=== PATIENT | female | born 1935 | race Caucasian/White ===

== ENCOUNTER → 2016-08-04 | Outpatient (CLI) | payer MEDICARE, BC ==
[2013-07-03 10:50] VITALS: BP 168/86
[~2016-08-04] MED LIST: ADVAIR DISKUS 21 DSK IH; AMBIEN10 MG PO; AMLODIPINE BESY10 MG PO; CARDURA4 MG PO; CELEBREX 200MG200 MG PO; COZAAR 25MG25 MG/TAB PO; GOOD NEIGHBOR325 MG PO; NORCO 325 MG-7.1 TAB PO; SYMBICORT1 AE3 IH; TRAMADOL 50 MG TAB PO; ULTRAM50 M1 PO
== END | disposition home or self-care (01) ==
LOC: PT 09:45

== ENCOUNTER 2016-08-18 12:04 | Inpatient (IN) | payer MEDICARE, BC ==
[~2016-08-18 12:04] MED LIST changes: -AMLODIPINE BESY10 MG PO; -CELEBREX 200MG200 MG PO; -GOOD NEIGHBOR325 MG PO; -NORCO 325 MG-7.1 TAB PO; -SYMBICORT1 AE3 IH; -TRAMADOL 50 MG TAB PO; -ULTRAM50 M1 PO
--- NOTE | 2016-08-18 12:45 | NUR ---
Pt admitted to room 203 at this time, ambulatory upon arrival with walker and SBA, when approaching room patient needed a break and used a wheelchair for the last 20 ft of her walk but stated she has been walking "a lot" [facility], she just was exhausted and hadnt had pain medicine for awhile, aslo reports that she "lost an entire day" at the surgical hospital due to narcotic pain medication she believes was [place], and requests to stick to Tylenol as much as possible for pain, patient has a generalized rash to back that the [facility] reported was from the tape and epidural that they had placed and removed during her stay, pt denies itching or need for Benadryl and believes it "will just go away soon," will continue to monitor, no other skin breakdown noted at pressure sites, left knee has an aquacell dressing on that is to be removed on 08/25/16 and replaced with 4x4 and secured with TAY hose, thigh high TAY hose on upon arrival, patient is fully alert and oriented, family is at bedside, pt is on Celebrex and Tylenol at this time to help with pain management and has PRN Ultram orders if needed, orders to ice that left knee for 20 minutes every hour, pt states she will do this "as much as possible," reports living at home prior to surgery with no assistance or outside resources, relies on family for support if needed, notable bruising redness and swelling to left knee from surgery, pt reports bruising and redness is "getting better" and denies that it has spread or worsened, states her pain is mainly only noticed with walking and transfers, complex assessment completed, VSS, oriented to new room, educated to call for help with transfers and about her bed and chair alarms used for her safety, upon leaving bed is in lowest locked position, call light is within reach, and patient denies further needs, will continue to monitor
[2016-08-18 12:51] VITALS: BP 103/49
[2016-08-18 18:15] VITALS: BP 120/65
[2016-08-18 19:15] VITALS: BP 120/65
[2016-08-18] MEDS ORDERED: SYMBICORT1 AE3 IH (19:25)
[2016-08-18] MEDS ORDERED: ULTRAM50 M1 PO (19:26)
[2016-08-18] MEDS ORDERED: GOOD NEIGHBOR325 MG PO (19:26)
[2016-08-18] MEDS ORDERED: AMLODIPINE BESY10 MG PO (19:26)
[2016-08-18] MEDS ORDERED: CELEBREX 200MG200 MG PO (19:27)
[2016-08-18] MEDS ORDERED: NORCO 325 MG-7.1 TAB PO (19:27)
--- NOTE | 2016-08-18 19:42 | NUR ---
Pt resting in bed comfortably, been icing her knee regularly as ordered, settling in well, c/o anxiety upon arriving but states she has calmed down and has been able to rest, requests PRN Tylenol with HS med pass, denies need for Ultram as she is also getting Ambien at bedtime, upon leaving patient is in bed reading a book, smiling affect, calm and cooperative with staff, and call light is within reach with bed alarms on
--- NOTE | 2016-08-18 21:20 | NUR ---
Shift assessment documented and completed at this time. Pt resting comfortably in bed watching TV. Denies SOA. Rates pain 4/10 to L knee. Denies need for medication. Dressing C/D/I. No further needs at this time. Bed locked, low, call light within reach, alarm armed.
[2016-08-19 06:23] VITALS: BP 115/70
--- NOTE | 2016-08-19 08:40 | NUR ---
PT UP WALKING TO SHOWER WITH SHANTANU CHRISTINE, SBA WITH WALKER, STATES SHE FEELS MUCH BETTER AND LESS ANXIOUS TODAY, DENIES NEED FOR TYLENOL AT THIS TIME BUT STATES SHE WILL TAKE IT AFTER THE SHOWER BECAUSE SHE DOESN'T WANT TO GET "BEHIND" ON PAIN CONTROL, LEFT KNEE INCISION COVERED WITH AQUACELL AT HIS TIME, ORDERS TO REMOVE 08/25/16, STATES PAIN IS 3/10 WHILE RESTING AND 5/10 WITH AMBULATION, REPORTS SHE HAD A DECENT NIGHT SLEEP, DENIES FURTHER NAUSEA OR DIARRHEA, STATES SHE FEELS SHE'S GETTING HER APPETITE BACK AND BREAKFAST TASTED GOOD, RASH ON BACK APPEARS TO BE IMPROVING, PT DENIES ITCHING OR CONCERNS AT THIS TIME, NO FURTHER ACUTE CHANGES UPON LEAVING ROOM, PT SHOWERING WITH EMMETT'S ASSISTANCE, WILL CONTINUE TO MONITOR PATIENT THROUGHOUT SHIFT
--- NOTE | 2016-08-19 12:58 | NUR ---
PT'S PAIN STILL UNDER CONTROL, TYLENOL PRN GIVEN X1 THIS AM, STATES SHE DOES NOT WANT ANYTHING STRONGER THAN TYLENOL BUT WILL TAKE MORE TYLENOL SOON, SMILING AFFECT, CALM AND COOPERATIVE WITH STAFF, FULLY ALERT AND ORIENTED, STATES SHE IS "LESS ANXIOUS" TODAY AND IS ENJOYING THIS FACILITY SO FAR, LEFT KNEE STILL HAS BRUISING AND REDNESS PRESENT, NO WARMTH AT SITE, BRUISING APPEARS TO BE IN HEALING STAGES, NO INCREASED REDNESS OR BRUISING FROM YESTERDAY'S ASSESSMENT
--- NOTE | 2016-08-19 14:39 | NUR ---
PRN TYLENOL ORDER CHANGED FROM EVERY 6 HOURS TO EVERY 4 HOURS DUE TO THIS BEING THE ONLY MEDICATION PATIENT WISHES TO TAKE FOR PAIN, DISCUSSED PAIN CONTROL AT THIS TIME, PT AGREES THAT WE NEED TO GIVE THIS TYLENOL ON A "REGULAR" BASIS RIGHT NOW WHILE WORKING WITH THERAPY SHE ADMITS HER PAIN IS STARTING TO GET "REALLY BAD" SOMETIMES THROUGHOUT THE DAY, WILL GIVE THIS PRN MEDICATION AGAIN WHEN AVAILABLE IN ORDER TO STAY AHEAD OF THE PAIN
--- NOTE | 2016-08-19 14:51 | NUR ---
PT UP WALKING WITH THERAPY, REPORTS HER PAIN IN HER LEG INCREASED, EDUCATED THAT SHE STILL HAS ULTRAM PRN AVAILABLE AND THAT THIS WOULD BE MORE BENEFICIAL FOR HER PAIN THAN TYLENOL, ALSO EDUCATED THAT THIS DOSE OF ULTRAM SHOULD NOT MAKE HER "DROWSY" AND THE 7.5 NORCOS (X2) SHE TOOK AT THE [facility], SHE DID NOT ENJOY "MISSING OUT ON AN ENTIRE DAY" DUE TO THIS DOSE AT THE [facility] AND STATES SHE DOES NOT WANT TO FEEL LIKE THAT AGAIN BUT DOES NEED SOMETHING STRONGER FOR PAIN, SHE HAS AGREED TO TRY A PRN DOSE OF ULTRAM WHEN SHE RETURNS TO ROOM FROM WALK, WE WILL ASSESS HOW SHE REACTS TO THIS MEDICATION AND ENSURE IT DOES NOT MAKE HER "TOO DROWSY"
--- NOTE | 2016-08-19 16:20 | NUR ---
Pt reports pain is "better" after ultram, smiling affect, resting in bed reading a book, denies that the ultram made her feel abnormal or too lethargic in any way, pleased with the results of the medication and states she would be willing to take this from now on when her pain intensifies
[2016-08-19 18:06] VITALS: BP 109/61
--- NOTE | 2016-08-19 19:15 | NUR ---
Report received from Yadi Henderson RN
--- NOTE | 2016-08-19 20:05 | NUR ---
Resting in recliner, a/o x 3. Visitor at pt's side. Pt denies need for pain medication or having any needs at this time. Rates pain at 3 out of 10. See shift accessment.
--- NOTE | 2016-08-19 20:05 | NUR ---
Bruise noted on left posterior hand, color red to purple. Pt denies pain.
--- NOTE | 2016-08-19 21:30 | NUR ---
Pt did own HS care with stand by assist. Able to bearfull weight, gait steady, one person stand by assist.
--- NOTE | 2016-08-19 22:05 | NUR ---
Pt stated a exceptable pain goal is 3 out of 10.
--- NOTE | 2016-08-19 22:16 | NUR ---
C/o's of pain, rates pain 4 out of 10. Pt given ultram 50mg PO, per pt request.
--- NOTE | 2016-08-19 23:19 | NUR ---
Resting in bed with eyes closed, even and none labored respirations.
--- NOTE | 2016-08-20 01:25 | NUR ---
Resting in bed, eyes closed, even, none labored respirations. Bed alarm turn on.
[2016-08-20 06:21] VITALS: BP 105/64
--- NOTE | 2016-08-20 07:00 | NUR ---
Report received from Saúl Morrison RN.
--- NOTE | 2016-08-20 07:25 | NUR ---
Q hourly checks done. Pt has been resting in bed, eyes closed even respirations. 704 Report given to Yadi Moses RN
--- NOTE | 2016-08-20 07:35 | NUR ---
Assessment completed. Pt sitting in chair. She reports her pain is at 2/10 while sitting and increases to a 3-4 with walking. Her last BM was two to three days ago which is normal for her, however she denies passing gas. Requests BRYANNA ortiz.
[2016-08-20 18:24] VITALS: BP 102/56
--- NOTE | 2016-08-20 18:55 | NUR ---
Report given to Saúl Morrison RN. Pt resting in bed.
--- NOTE | 2016-08-20 18:56 | NUR ---
Report received from Yadi Moses RN
--- NOTE | 2016-08-20 19:40 | NUR ---
Resting in recliner with legs elevated. A/o x 3. Has had Ice pack to left knee. Pt requested to remove ice pack. Ice pack has been on for 20 minutes. Review use of Ice pack. Instructed pt ice should be on 15-20 minutes at a time and then off for at least 20 minutes. May use 4-5/day and PRN. Pt agreed. Dressing to left knee, CDI. Bruising noted left lower leg. Color Purple. Doraslis pulse and tibial pulse present and strong. Capillary refill less than 3 seconds. Rates pain around 4-5 out of 10. Exceptable pain goal level is 3 out of 10. See shift accessment
--- NOTE | 2016-08-20 19:45 | NUR ---
Pulse equal and reactive to light. Mucus membranes mosit. Equal forestry adviser in hand and equal strength in feet.
--- NOTE | 2016-08-20 21:44 | NUR ---
C/o's of pain in left knee. Rates 4-5 out of 10. Pt given Ultram 50mg PO
--- NOTE | 2016-08-20 22:22 | NUR ---
Resting in bed, awake and a/o x 3. Pt reading from tablet. No c/o's of pain voiced
--- NOTE | 2016-08-21 02:17 | NUR ---
Resting in bed, eyes closed even none labored respirations. Pt has repositioned self. No facial grimacing noted
--- NOTE | 2016-08-21 06:00 | NUR ---
Q hourly checks done. Has been resting in bed with eyes closed, even, none labored respirations. Has repositioned self. At 0530 Pt awake and a/o x 3. Ambulated to bathroom with one person stand by assist, used walker. Denied having any needs or concerns.
[2016-08-21 06:31] VITALS: BP 127/69
--- NOTE | 2016-08-21 07:15 | NUR ---
Report given to Summer Wan RN
--- NOTE | 2016-08-21 07:50 | NUR ---
Report received from Kelly Morrison RN and care assumed. Pt resting in bed, states pain is 4/10 at this time and no request for pain medication. Pt states that she feels "cooped up" and pt educated that walks may be asked for whenever she feels like it to get some exercise or get out of the room. No further needs at this time. Call light in reach.
--- NOTE | 2016-08-21 09:20 | NUR ---
Pt states that she still has not had any results from the Senakot given yesterday. Offered pt an additional Senakot this morning to aid in having a BM. Pt accepted. Bowel sounds active and abdomen soft. Also educated pt on eating more fruit or other foods that can aid in having a BM. Pt verbalized understanding. Resting in chair, no further needs or concerns at this time.
--- NOTE | 2016-08-21 12:59 | NUR ---
Pt requested pain medication for knee pain. Ultram given per PRN orders at this time. No further needs or concerns. TAY baumann on. Pt resting in chair, call light in reach.
--- NOTE | 2016-08-21 14:00 | NUR ---
Pt ambulates in halls with stand by assist and walker, gait steady. No further needs at this time and no complaints of increasing pain. Back to chair, call light in reach.
[2016-08-21 17:39] VITALS: BP 131/66
--- NOTE | 2016-08-21 19:36 | NUR ---
Report given to Ange Abraham, MINING SUPPORT WORKER and care transfered. Pt resting in chair, no needs at this time.
--- NOTE | 2016-08-21 19:43 | NUR ---
Report received from Summer TURNER. Patient resting in recliner watching TV. A/O x4. Rates pain 3-4/10. to L knee. Denies need for analgesic at this time. Aquacell dresssing CDI. No shadowing. Feet elevated. Assessment completed. Denies wants or needs at this time.
--- NOTE | 2016-08-21 21:38 | NUR ---
Assisted to BR by ART GILDER and HS cares. To bed, Ambien given at this time per request. Bed alarm on. Call light in reach.
--- NOTE | 2016-08-21 23:58 | NUR ---
Rests quietly with eyes closed. No signs of pain or distress. Bed alarm on. Call light in reach.
--- NOTE | 2016-08-22 01:34 | NUR ---
Up to BR with assist. Denies need for analgesic. Assisted back to bed. Bed alarm on. Call light in reach.
--- NOTE | 2016-08-22 04:01 | NUR ---
Resting with eyes closed. No signs of pain or distress.
[2016-08-22 06:21] VITALS: BP 145/66
--- NOTE | 2016-08-22 07:12 | NUR ---
Rested well all night, up with assist x2. No further request for analgesic or verbalization of pain this shift. Report to Neda TURNER.
--- NOTE | 2016-08-22 08:30 | NUR ---
Pt reports that she slept well. Pain to L knee 09/23. Pt denies having BM since admit and is given PRN Senokot at this time. Aquacel to L knee intact, no drainage noted. Moderate bruising to surrounding tissue and down L leg. Pt is ambulating well and accepts tramadol x 1 in anticipation of therapy later this AM.
[2016-08-22 18:23] VITALS: BP 116/56
--- NOTE | 2016-08-22 19:05 | NUR ---
Report received from Angelique Casanova RN
--- NOTE | 2016-08-22 19:20 | NUR ---
Awake and a/o x 3. Sitting up in recliner, with feet elevated. Visitor at side. Pt denies pain or nausea. Denies having any needs or concern. Pt given fresh ice pack for left knee
--- NOTE | 2016-08-22 20:10 | NUR ---
Resting in recliner, awake and a/o x 3. Watching basket ball game on TV. Denied any needs or concerns. Chair alarm on, pt states understanding. Samuel baumann on. Dressing to left knee CDI. See shift accessment.
--- NOTE | 2016-08-22 22:33 | NUR ---
Pt continues to be a/o x 3. Ambulated to bathroom, one person stand by assist. Gait steady, uses walker when ambulating. Did own HS care. Given ultram 50mg PO per pt request. Rated pain 3-4 out 10.
--- NOTE | 2016-08-22 23:28 | NUR ---
Resting in bed, eyes closed even, none labored respirations. No facial grimacing noted.
--- NOTE | 2016-08-23 01:30 | NUR ---
Q hourly checks done. Eyes closed even, none labored respirations. Pt has repositioned self. Bed alarm on.
--- NOTE | 2016-08-23 04:30 | NUR ---
Awake and a/o x 3, used call light. Ambulated to the bathroom, stated she felt like she needed to have a bowel movement. Stated she was passing gas.
--- NOTE | 2016-08-23 04:35 | NUR ---
Pt urinated, stated she only passed gas. Given senokat 1 PO
[2016-08-23 06:20] VITALS: BP 141/74
--- NOTE | 2016-08-23 06:20 | NUR ---
Resting in bed with eyes closed, even none labored respirations. Pt has repositioned self. Q hourly checks done
--- NOTE | 2016-08-23 07:27 | NUR ---
Report given to Jackie Berrios RN
--- NOTE | 2016-08-23 08:30 | NUR ---
Cecilia Gomez PA-C at bedside.
--- NOTE | 2016-08-23 08:50 | NUR ---
Patient alert and oriented. Sitting up in chair with lower extremities elevated. Rates pain 3/10 to left knee. Describes pain as "dull." PRN tramadol administered per patient request. Aquacel dressing to left knee incision is clean, dry, and intact. No drainage noted. Moderate dark purple bruising noted to surrounding tissue and down left leg. CMS intact. TAY hose to bilateral lower extremities. Patient reports no BM since prior to admission. Cecilia Gomez PA-C notified. PRN senokot and miralax administered per orders. Bowels are audible x4. Abdomen is soft and nontender. Denies abdominal pain or discomfort. Patient ambulates to the bathroom and back to chair with stand by assist only. Stands at sink to brush teeth. Changes clothing without assistance. Steady gait noted with use of walker. Patient denies needs or questions at this time. Fall precautions in place.
--- NOTE | 2016-08-23 17:20 | NUR ---
Patient alert and oriented. Sitting in chair for evening meal. Rates pain 5/10 to left knee. PRN tramadol administered per patient request. Aquacel to left knee is clean, dry, and intact. No drainage. CMS intact. Patient reports no bowel movement since taking miralax and senokot this morning. Cecilia Gomez PA-C notified. New orders obtained. Additional dose of miralax and PRN senokot administered per orders. Bowel sounds are audible x4. Patient states "it feels like I need to go, I feel full." Denies abdominal pain or discomfort. Education provided. Patient verbalizes understanding and denies questions or needs. Fall precautions in place.
--- NOTE | 2016-08-23 17:26 | NUR ---
Pt anticipates discharge to home on 08-26-16. Her friend Justina Lyons will pick her up at discharge and take her to her appointment w/ Dr Elan Eisenberg. Justina will also check w/ [facility] for a shower chair and a bed side commode that she can place over her toilet for safety as she does not have grab bars beside her toilet, other [facility] pt's dtr Shea [phone] will obtain those items for her or her will put up bars when they arrive from [place] on the evening of pt's discharge. They plan to stay the weekend and if all goes well they will be leaving on Monday. Both pt and dtr are informed of HH services should pt decide that she is having difficulty and will not be able to get out for OP therapy. They are aware that HH can be ordered after her discharge if needed. Pt and dtr are notified of a personal alarm system and pt's dtr strongly encourages her mother to obtain one. Pt is given information and will review it and if she is in agreement we will set this up for her prior to her going home. Pt says she is comfortable w/ all discharge plans.
[2016-08-23 18:11] VITALS: BP 124/65
--- NOTE | 2016-08-23 19:28 | NUR ---
Report received from Jackie TURNER. Patient sitting up in recliner. A/O x4. Rates pain 4/10 to L knee. Luz CDI. Removes aureliano hose at this time. Legs elevated. Assessment completed. Denies wants or needs at this time. Call light in reach.
--- NOTE | 2016-08-23 20:45 | NUR ---
Scheduled HS medications and PRN ultram taken. Wants Ambien when goes to bed. Assisted to bathroom with SBA and walker. Had large soft formed BM. Assisted back to recliner with legs elevated. Call light in reach.
--- NOTE | 2016-08-24 01:03 | NUR ---
Resting with eyes closed. No signs of pain or distress. Bed alarm on. Call light in reach.
--- NOTE | 2016-08-24 04:16 | NUR ---
Continues sleeping. No signs of pain or distress. Call light in reach. Bed alarm on.
--- NOTE | 2016-08-24 06:17 | NUR ---
Rested well all night. No request for analgesic through the night, rests in bed with eyes closed. No signs of pain or distress. Bed alarm on. Call light in reach.
[2016-08-24 06:26] VITALS: BP 125/73
--- NOTE | 2016-08-24 07:10 | NUR ---
Report to Jackie TURNER
--- NOTE | 2016-08-24 12:35 | NUR ---
Patient alert and oriented. Sitting in recliner with lower extremities elevated. Rates pain 5/10 to left knee. States "it's a little worse." Offered patient PRN pain medication. Patient is hesitant at first. Education provided on pain control. Patient verbalizes understanding and is agreeable to PRN tramadol. Ice pack at bedside that patient applies for 15 minutes then removes independently. Aquacel dressing to left knee is clean, dry, and intact. TAY hose to bilateral lower extremities. CMS intact. Patient denies needs. Fall precautions in place.
[2016-08-24 17:58] VITALS: BP 111/63
--- NOTE | 2016-08-24 19:21 | NUR ---
Report received from Jackie TURNER. Patient sitting up in recliner. A/O x4. Rates pain 3/10 to L knee. Aquacell dressing CDI. Has been utilizing ice. Legs elevated. Assessment completed. Denies wants or needs at this time.
--- NOTE | 2016-08-25 00:12 | NUR ---
Rests with eyes closed. No signs of pain or distress. Took PRN Ultram with HS medications and Ambien later when went to bed. Bed alarm on. Call light in reach.
--- NOTE | 2016-08-25 04:11 | NUR ---
Up to BR with SBA, gait belt and walker. Voids 800 ML of clear yellow urine. Assisted back to bed. TAY hose removed per request. Denies pain or need for analgesic. Bed alarm on. Call light in reach.
[2016-08-25 06:36] VITALS: BP 135/77
--- NOTE | 2016-08-25 07:10 | NUR ---
Report to Chuyita TURNER.
--- NOTE | 2016-08-25 08:10 | NUR ---
PT UP IN CHAIR EATING BREAKFAST, REQUESTS PRN PAIN PILL WITH AM MEDS TO HELP HER GET THROUGH THERAPY, COMPLEX ASSESSMENT COMPLETED, STABLE CONDITION, AMBULATORY WITH SBA, MENTIONS MULTIPLE TIMES HOW PLEASED SHE HAS BEEN WITH HER CARE AND THE STAFF AT [facility], SMILING AFFECT, DENIES ACUTE CHANGE OR NEEDS, WILL REMOVE AQUACELL LATER TODAY ORDERED, CALL LIGHT WITHIN REACH UPON LEAVING ROOM
--- NOTE | 2016-08-25 13:01 | NUR ---
PT'S AQUACELL TO LEFT KNEE DC'D AT THIS TIME ORDERED, MINOR PAIN WITH REMOVIAL, SITE LOOKS WELL, EDGES WELL APPROXIMATED, NO SIGNS OF INFECTION OR DRAINAGE, SURROUNDING SKIN STILL BRUISED WITH AREAS OF REDNESS, PAIN NOTED AT SITE AND PRN ULTRAM ADMINISTERED AT THIS TIME, SITE CLEANSED AND COVERED WITH GAUZE SECURED BY TAY HOSE ORDERED AT THIS TIME
[2016-08-25 18:10] VITALS: BP 116/63
--- NOTE | 2016-08-25 19:05 | NUR ---
Report received from Chuyita Angel RN
--- NOTE | 2016-08-25 19:15 | NUR ---
Resting in recliner a/o x 3. Denies need for pain medication at this time. Request ice pack for left knee. See shift assessment.
--- NOTE | 2016-08-25 19:20 | NUR ---
Gauze dressing to left knee. CDI, held in place by TAY baumann. Incision Well aprox. no drainage.
--- NOTE | 2016-08-25 22:05 | NUR ---
At 2204 Pt c/o of left knee pain. Rated pain 5 out of 10. Given Ultram 50mg PO.
--- NOTE | 2016-08-25 22:30 | NUR ---
Pt c/o of TAY hose itching. TAY hose removed. Incision CDI. No drainage. Gauze dressing wrapped with gauze wrap. While TAY hose are off. Instructed pt TAY hose would be reapplied in one hour. Pt agreed.
--- NOTE | 2016-08-25 23:30 | NUR ---
Bed alarm sounded, pt found sitting up in bed. Stated she need to go to the bathroom and didn't realize bed would alarm. Pt reminded that bed alarms are on all pt's. Reminder her she need to use call light and ask for assistances when getting out of bed. Pt agree. Pt denied pain. Gauze wrap removed. Gauze dressing in place. TAY hose re-applied.
--- NOTE | 2016-08-26 03:37 | NUR ---
Q hourly checks done, resting in bed with eyes closed. Even, none labored respiration. Pt has repositioned self. Bed alarm on.
--- NOTE | 2016-08-26 06:11 | NUR ---
At 0515 pt awake and a/o x 3. Denied pain. Ambulated to bathroom with one stand by assist, used walker and gait steady. Denied having any needs or concerns.
[2016-08-26 06:19] VITALS: BP 132/76
--- NOTE | 2016-08-26 07:05 | NUR ---
REPORT RECEIVED FROM TOSIN TURNER.
--- NOTE | 2016-08-26 07:09 | NUR ---
Report given to Sydnie Purcell RN
--- NOTE | 2016-08-26 07:34 | NUR ---
AWAKE. SITTING IN CHAIR WITH LE ELEVATED. TAY HOSE TO BILAT LE. SIOBHAN FRANCIS ALSO AT BEDSIDE TO DISCUSS TODAY'S PLAN. PATIENT TO DISCHARGE TODAY AT 1100. HER FRIEND ETELVINA WILL BE PICKING HER UP AND TRANSPORTING HER TO [facility] F/U APPT. THEN SHE WILL GO HOME. SHE REPORTS LT KNEE PAIN 3/10. PAIN MEDICATION TO BE GIVEN WITH BREAKFAST. SURGICAL INCISION TO LT KNEE APPEARS WITH SKIN EDGES TOUCHING. THERE IS SOME ECCHYMOSIS AROUND KNEE JOINT. GAUZE 4X4 COVERS SITE TO PROVIDE PROTECTION FROM TAY HOSE. CALL LIGHT IN REACH.
[2016-08-26] MEDS ORDERED: CELEBREX 200MG200 MG PO (08:56)
[2016-08-26] MEDS ORDERED: TRAMADOL 50 MG TAB PO (08:57)
--- NOTE | 2016-08-26 09:56 | NUR ---
DISCHARGE INSTRUCTIONS REVIEWED WITH PATIENT. ENCOURAGE DAILY VISUALIZATION OF SURGICAL INCISION. EDUCATION PROVIDED REGARDING S/S OF INFECTION. PATIENT VERBALIZES UNDERSTANDING. REVIEW RX PROVIDED FOR PAIN MEDICATION AND WHAT DOSE HAS BEEN GIVEN DURING THIS HOSPITAL STAY.
--- NOTE | 2016-08-26 11:14 | NUR ---
PATIENT DISCHARGES FACILITY AT THIS TIME VIA W/C.
== END 2016-08-26 11:14 | disposition home or self-care (01) | DRG 561 ==
LOC: MED/SURG 12:04
PROVIDERS: ADMIT Physician Assistant
DX: Z47.1 Aftercare following joint replacement surgery (principal); Z96.652 Presence of left artificial knee joint; J47.9 Bronchiectasis, uncomplicated; F41.9 Anxiety disorder, unspecified; K59.00 Constipation, unspecified; R53.81 Other malaise; I10 Essential (primary) hypertension; M81.0 Age-related osteoporosis without current pathological fracture; J30.9 Allergic rhinitis, unspecified; Z79.82 Long term (current) use of aspirin; Z23 Encounter for immunization; Z87.440 Personal history of urinary (tract) infections; Z87.891 Personal history of nicotine dependence

== ENCOUNTER 2016-08-29 11:17 | Outpatient (RCR) | payer MEDICARE, BC ==
[~2016-08-29 11:17] MED LIST changes: +AMLODIPINE BESY10 MG PO; +CELEBREX 200MG200 MG PO; +GOOD NEIGHBOR325 MG PO; +NORCO 325 MG-7.1 TAB PO; +SYMBICORT1 AE3 IH; +TRAMADOL 50 MG TAB PO; +ULTRAM50 M1 PO
== END 2016-11-11 15:01 | disposition home or self-care (01) ==
LOC: PT 11:17
DX: Z47.89 Encounter for other orthopedic aftercare (principal)

== ENCOUNTER → 2017-05-03 | Outpatient (CLI) | payer MEDICARE, BC | LOC: MAMMO 10:49 | DX: Z12.31 Encounter for screening mammogram for malignant neoplasm of breast (principal) | CPT/HCPCS: G0202 ==

== ENCOUNTER 2018-02-11 12:22 | Emergency (ER) | payer MEDICARE, BC ==
[~2018-02-11] VITALS: Ht 157.5 cm; Wt 55.8 kg
[2018-02-11] MEDS ORDERED: GOOD NEIGHBOR200 M1 PO (12:33)
[2018-02-11 13:30] VITALS: BP 147/84
[2018-02-11] MEDS ORDERED: BACITRACIN TOP O1 TU TOP (13:30)
== END 2018-02-11 13:30 | disposition home or self-care (01) ==
LOC: ED 12:22
DX: S51.812A Laceration without foreign body of left forearm, initial encounter (principal); W19.XXXA Unspecified fall, initial encounter; Y92.009 Unspecified place in unspecified non-institutional (private) residence as the place of occurrence of the external cause; Z23 Encounter for immunization
CPT/HCPCS: 90715

== ENCOUNTER → 2020-04-30 | Outpatient (CLI) | payer MEDICARE, BC ==
[~2020-04-30] MED LIST changes: +BACITRACIN TOP O1 TU TOP; +GOOD NEIGHBOR200 M1 PO
== END ==
LOC: RAD 08:45 → MAMMO 09:15
DX: M81.0 Age-related osteoporosis without current pathological fracture (principal)

== ENCOUNTER → 2020-04-30 | Outpatient (CLI) | payer MEDICARE, BC | LOC: MAMMO 08:30 | DX: Z12.31 Encounter for screening mammogram for malignant neoplasm of breast (principal); Z80.3 Family history of malignant neoplasm of breast ==

== ENCOUNTER → 2023-07-13 | Outpatient (CLI) | payer MEDICARE, BC | LOC: MAMMO 09:58 | DX: Z12.31 Encounter for screening mammogram for malignant neoplasm of breast (principal) ==

== ENCOUNTER → 2023-07-13 | Outpatient (CLI) | payer MEDICARE, BC | LOC: RAD 10:02 | DX: M81.0 Age-related osteoporosis without current pathological fracture (principal) ==

== ENCOUNTER 2023-09-29 10:29 | Emergency (ER) | payer MEDICARE, BC ==
[~2023-09-29] VITALS: Ht 157.5 cm; Wt 45.2 kg
[2023-09-29] MEDS ORDERED: ALBUTEROL2.5 MG/3 M IH (10:41)
[2023-09-29] MEDS ORDERED: ALENDRONATE SOD70 MG PO (10:42)
[2023-09-29 11:14] LABS: BASO # 0.06 K/mm3 (0.02-0.10); EOS # 0.25 K/mm3 (0.04-0.40); EOS % 3.5 % (1.0-5.0); HEMATOCRIT 40.4 % (37.0-47.0); HEMOGLOBIN 12.8 g/dL (12.5-16.0); LYMPH# 1.06 K/mm3 (1.50-4.00); MEAN CELL VOLUME 89 fl (78-100); MEAN CORPUSCULAR HEMOGLOBIN 28 pg (27-31); MEAN CORPUSCULAR HGB CONC 32 g/dL (33-37); MEAN PLATELET VOLUME 9.4 fl (7.4-10.4); NEU # 4.77 K/mm3 (1.40-6.50); PLATELET COUNT 323 K/mm3 (130-400); RED BLOOD COUNT 4.56 M/mm3 (4.10-5.30); RED CELL DISTRIBUTION WIDTH 13.6 % (11.5-14.5); WHITE BLOOD COUNT 7.1 K/mm3 (4.8-10.8)
[2023-09-29 11:20] LABS: ALBUMIN 3.6 g/dL (3.4-4.8)
[2023-09-29 11:21] LABS: CALCIUM 9.7 mg/dL (8.3-10.5)
[2023-09-29 11:22] LABS: TOTAL PROTEIN 7.1 g/dL (6.2-8.1)
[2023-09-29 11:24] LABS: TOTAL BILIRUBIN 0.4 mg/dL (0.2-1.2)
[2023-09-29] MEDS ORDERED: methylPREDNISolone Sod Succ 125 MG/2 ML VIAL IV ONE (11:30)
[2023-09-29] MEDS ORDERED: Albuterol/Ipratropium 3 MG-0.5 MG/3 ML Neb Soln IH ONE (11:30)
[2023-09-29] MEDS ORDERED: Acetaminophen 325 MG TAB PO PRN (13:00)
[2023-09-29] MEDS ORDERED: Polyethylene Glycol 3350 Powder 17 GM PACKET PO PRN (13:00)
[2023-09-29] MEDS ORDERED: dexAMETHasone 4 MG TAB PO ONE (13:15)
[2023-09-29] MEDS ORDERED: Alendronate 70 MG TAB PO SCH (13:15)
[2023-09-29] MEDS ORDERED: Albuterol 0.083% Nebule (2.5 MG/3 ML) IH PRN (13:15)
[2023-09-29 13:31] VITALS: BP 153/89
[2023-09-29] MEDS ORDERED: Zolpidem 5 MG TAB PO SCH (21:00)
[2023-09-30] MEDS ORDERED: Budesonide Neb Soln 0.5 MG/2 ML AMP IH SCH (09:00)
[2023-10-03] MEDS ORDERED: DOXYCYCLINE MO100 M3 PO (16:19)
[2023-10-03] MEDS ORDERED: AMBIEN5 M1 PO (16:20)
[2023-10-03] MEDS ORDERED: PREDNISONE10 MG PO (16:21)
[2023-10-03] MEDS ORDERED: VIBRAMYCIN HYC100 MG PO (16:22)
== END 2023-09-29 13:30 | disposition other institution (70) ==
LOC: ED 10:29
PROVIDERS: Nurse Practitioner Family
DX: U07.1 COVID-19 (principal); R05.9 Cough, unspecified; R06.02 Shortness of breath; R06.00 Dyspnea, unspecified; R09.02 Hypoxemia; J42 Unspecified chronic bronchitis
CPT/HCPCS: J2930

== ENCOUNTER → 2023-10-18 | Outpatient (CLI) | payer MEDICARE, BC ==
[~2023-10-18] MED LIST changes: +ALBUTEROL2.5 MG/3 M IH; +ALENDRONATE SOD70 MG PO; +AMBIEN5 M1 PO; +DOXYCYCLINE MO100 M3 PO; +PREDNISONE10 MG PO; +VIBRAMYCIN HYC100 MG PO
== END ==
LOC: LAB 13:28
DX: J47.9 Bronchiectasis, uncomplicated (principal)

== ENCOUNTER 2024-02-29 14:49 | Emergency (ER) | payer MEDICARE, BC ==
[~2024-02-29] VITALS: Ht 157.5 cm; Wt 48.3 kg
[2024-02-29] MEDS ORDERED: AMBIEN5 M1 PO (14:57)
[2024-02-29] MEDS ORDERED: PRAVASTATIN SOD10 MG PO (14:57)
[2024-02-29] MEDS ORDERED: FLUTICASONE-SA1 EAC4 (14:58)
[2024-02-29] MEDS ORDERED: DONEPEZIL HCL10 MG PO (14:59)
[2024-02-29 15:22] LABS: BASO # 0.04 K/mm3 (0.02-0.10); EOS # 0.03 K/mm3 (0.04-0.40); EOS % 0.2 % (1.0-5.0); HEMATOCRIT 37.9 % (37.0-47.0); HEMOGLOBIN 12.4 g/dL (12.5-16.0); LYMPH# 0.99 K/mm3 (1.50-4.00); MEAN CELL VOLUME 87 fl (78-100); MEAN CORPUSCULAR HEMOGLOBIN 29 pg (27-31); MEAN CORPUSCULAR HGB CONC 33 g/dL (33-37); MEAN PLATELET VOLUME 9.5 fl (7.4-10.4); MONO # 1.33 K/mm3 (0.20-0.80); PLATELET COUNT 265 K/mm3 (130-400); RED BLOOD COUNT 4.35 M/mm3 (4.10-5.30); RED CELL DISTRIBUTION WIDTH 13.7 % (11.5-14.5); WHITE BLOOD COUNT 19.4 K/mm3 (4.8-10.8)
[2024-02-29 15:28] LABS: ALBUMIN 3.7 g/dL (3.4-4.8)
[2024-02-29 15:29] LABS: CALCIUM 9.9 mg/dL (8.3-10.5)
[2024-02-29 15:32] LABS: TOTAL BILIRUBIN 0.6 mg/dL (0.2-1.2)
[2024-02-29 16:26] LABS: D-DIMER 0.83 mg/L FEU (0.15-0.50)
[2024-02-29] MEDS ORDERED: cefTRIAXone 1 G in Water For Injection,Sterile 10 ML IV ONE (16:30)
[2024-02-29] MEDS ORDERED: NS 1,000 ML IV SCH (16:30)
[2024-02-29] MEDS ORDERED: Iohexol 350 - 100 ML VIAL IV ONE (16:33)
[2024-02-29 16:39] LABS: RSV RAPID MOLECULAR IN HOUSE NEGATIVE (NEGATIVE)
== END 2024-02-29 18:09 | disposition other institution (70) ==
LOC: ED 14:49
PROVIDERS: Nurse Practitioner
DX: J18.9 Pneumonia, unspecified organism (principal); J42 Unspecified chronic bronchitis; J84.9 Interstitial pulmonary disease, unspecified; I10 Essential (primary) hypertension; R09.02 Hypoxemia
CPT/HCPCS: J0696; J7030; Q9967

== ENCOUNTER 2024-02-29 17:45 | Inpatient (IN) | payer MEDICARE, BC ==
[~2024-02-29] VITALS: Ht 157.5 cm; Wt 48.0 kg
[~2024-02-29 17:45] MED LIST changes: +DONEPEZIL HCL10 MG PO; +FLUTICASONE-SA1 EAC4; +PRAVASTATIN SOD10 MG PO
[2024-02-29 18:00] VITALS: BP 162/65
--- NOTE | 2024-02-29 18:00 | NUR ---
PT ADMITTED FROM ED. ORIENTATED TO HOSPITAL. ADMISSION PROCESS COMPLETE. 1L O2 VIA NC, FLUIDS RUNNING. PT IN CHAIR EATING DINNER. NO QUESTIONS OR CONCERNS AT THIS TIME. CHAIR ALARM ON, CALL LIGHT WITHIN REACH.
[2024-02-29] MEDS ORDERED: Acetaminophen 325 MG TAB PO PRN (18:15)
[2024-02-29] MEDS ORDERED: Polyethylene Glycol 3350 Powder 17 GM PACKET PO PRN (18:15)
[2024-02-29] MEDS ORDERED: Zolpidem 5 MG TAB PO PRN (18:30)
[2024-02-29] MEDS ORDERED: Azithromycin 250 MG TAB PO ONE (18:30)
[2024-02-29] MEDS ORDERED: Albuterol 0.083% Nebule (2.5 MG/3 ML) IH PRN (18:30)
[2024-02-29] MEDS ORDERED: Donepezil 5 MG TAB PO SCH (21:00)
[2024-02-29] MEDS ORDERED: Formoterol 20 MCG,Budesonide 0.5 MG IH SCH (21:00)
[2024-02-29] MEDS ORDERED: Pravastatin 20 MG TAB PO SCH (21:00)
[2024-02-29 22:17] VITALS: BP 145/79
[2024-03-01 02:05] VITALS: BP 124/74
--- NOTE | 2024-03-01 05:38 | NUR ---
pt woke up and was taken to bathroom by timber skidder, after pt was returned to bed she started coughing, this rn spot checked pts spo2% at 93% on 1l o2. pt continued coughing and stated she felt a bit short of air, this rn proceeded to start prn albuterol ih tx. pt will be assesed after breathing tx, for further needs.
[2024-03-01 06:01] VITALS: BP 137/81
[2024-03-01 06:28] LABS: BASO # 0.07 K/mm3 (0.02-0.10); EOS % 0.6 % (1.0-5.0); HEMATOCRIT 34.1 % (37.0-47.0); HEMOGLOBIN 11.1 g/dL (12.5-16.0); MEAN CELL VOLUME 88 fl (78-100); MEAN CORPUSCULAR HEMOGLOBIN 29 pg (27-31); MEAN CORPUSCULAR HGB CONC 33 g/dL (33-37); MEAN PLATELET VOLUME 9.6 fl (7.4-10.4); NEU # 12.84 K/mm3 (1.40-6.50); PLATELET COUNT 245 K/mm3 (130-400); RED BLOOD COUNT 3.87 M/mm3 (4.10-5.30); RED CELL DISTRIBUTION WIDTH 14.1 % (11.5-14.5); WHITE BLOOD COUNT 16.7 K/mm3 (4.8-10.8)
[2024-03-01 06:38] LABS: CALCIUM 8.8 mg/dL (8.3-10.5)
[2024-03-01] MEDS ORDERED: Potassium Bicarbonate/Citrate 20 MEQ Effervescent TAB PO SCH (09:00)
[2024-03-01] MEDS ORDERED: Fluticasone Nasal 50 MCG/Spray 16 GM BOTTLE NS SCH (09:00)
[2024-03-01] MEDS ORDERED: Azithromycin 250 MG TAB PO SCH (09:00)
[2024-03-01] MEDS ORDERED: Cetirizine 10 MG TAB PO SCH (09:00)
[2024-03-01 10:55] VITALS: BP 130/75
[2024-03-01 14:12] VITALS: BP 130/73
[2024-03-01 17:12] VITALS: BP 145/87
[2024-03-01] MEDS ORDERED: Cefepime 2 G in Water For Injection,Sterile 20 ML IV SCH (17:30)
[2024-03-01] MEDS ORDERED: Cefepime 1 G in Water For Injection,Sterile 10 ML IV SCH (18:00)
[2024-03-01] MEDS ORDERED: cefTRIAXone 1 G in Water For Injection,Sterile 10 ML IV SCH (18:30)
[2024-03-01 19:43] LABS: URINE APPEARANCE CLOUDY (CLEAR); URINE BILIRUBIN NEGATIVE (NEGATIVE); URINE BLOOD 2+ (NEGATIVE); URINE COLOR DARK YELLOW (YELLOW); URINE GLUCOSE NEGATIVE (NEGATIVE); URINE KETONE NEGATIVE (NEGATIVE); URINE LEUKOCYTE ESTERASE 3+ (NEGATIVE); URINE NITRATE POSITIVE (NEGATIVE); URINE PROTEIN(semi-quant) 1+ (NEGATIVE); URINE WBC >50 /hpf (0-3)
--- NOTE | 2024-03-01 21:00 | NUR ---
PT SITTING IN RECLINER WATCHING TV. PT DENIES PAIN WHEN AKSED. PT HAS OCASSIONAL PRODUCTIVE COUGH WITH PALE YELLOW SPUTUM AT TIMES. PT ASKED WHAT MEDS SHE WAS RECIVING THEN SHE ASKED WHERE HER SLEEPING MED WAS EXPLAINED THAT IT IS PRN AND SHE WOULD HAVE TO ASK FOR IT. AMBIEN 5 MG WAS GIVEN. WHEN ADMINISTERING HER LOVENOX INJECTION NOTICED PT WAS INCONTIENT OF STOOL AND IT HAD COME UP BETWEEN HER LEG AND UP ON HER BELLY. PT WAS TAKEN TO THE BATHROOM TO BE CLEANED. PT IS CONCERNED ABOUT WHY SHE IS HAVING SUCH LOOSE STOOLS EXPLAINED THAT IT COULD BE CAUSED FROM THE IV ANTIBIOTICS. PT STATES UNDERSTANDING. PT ASSITED BACK TO THE RECLINER. CALL LIGHT IN REACH OF PT.
[2024-03-01 21:40] VITALS: BP 176/106
--- NOTE | 2024-03-01 23:23 | NUR ---
ENGRAVER LETTERING REPORTS TO NURSE PT IS CONCERNED ABOUT HOW LONG SHE WILL NEED TO STAY AND THAT THE PT HAS METIONED IT SEVERAL TIMES. NURSES ENTERS ROOM PT IS LAYING IN BED REAADING ONHER TABLET. WHEN ASKED ABOUT CONCERNS PT STATES SHE IS READY TO GO HOME AND THAT SHE HAS BEEN HERE LONG ENOUGH, SHE ALOS EXPRESSES THAT SHE HAS A "LUNG DOCTOR" IN [place] AND SHE CAN GO TO HIM AND HAVE HIM CARE FOR HER. PT STATES SHE IS BUSY AND HAS THINGS TO DO. WHEN NURSE EXPLAINES TO PT THAT SHE HAS ONLY BEEN HERE FOR 1 DAY, PT STATES "NO I HAVE BEEN HERE FOR SEVERAL DAYS" NURSE HAD TO REORIENT PT TO WHEN SHE WAS IN THE ER AND WHAT TODAY WAS. EXPLAINED THAT PT SHOULD PLAN TO BE IN THE HOSPITAL AT LEAST OVER THE WEEKEND AND A PROVIDER WOULD BE IN EVERY DAY TO SEE HER WHILE SHE IS AN ACUTE PT. PT STATES UNDERSTANDING AFTER DISCUSSION.
[2024-03-02 01:51] VITALS: BP 157/88
[2024-03-02 06:03] VITALS: BP 172/69
[2024-03-02 06:15] LABS: BASO # 0.06 K/mm3 (0.02-0.10); EOS # 0.25 K/mm3 (0.04-0.40); EOS % 2.1 % (1.0-5.0); HEMATOCRIT 34.9 % (37.0-47.0); HEMOGLOBIN 11.4 g/dL (12.5-16.0); LYMPH# 0.61 K/mm3 (1.50-4.00); MEAN CELL VOLUME 88 fl (78-100); MEAN CORPUSCULAR HEMOGLOBIN 29 pg (27-31); MEAN CORPUSCULAR HGB CONC 33 g/dL (33-37); MEAN PLATELET VOLUME 9.6 fl (7.4-10.4); MONO # 1.01 K/mm3 (0.20-0.80); PLATELET COUNT 267 K/mm3 (130-400); RED BLOOD COUNT 3.96 M/mm3 (4.10-5.30); RED CELL DISTRIBUTION WIDTH 13.7 % (11.5-14.5); WHITE BLOOD COUNT 11.8 K/mm3 (4.8-10.8)
[2024-03-02 06:27] LABS: ALBUMIN 3.1 g/dL (3.4-4.8)
[2024-03-02 06:28] LABS: CALCIUM 8.8 mg/dL (8.3-10.5)
[2024-03-02 06:29] LABS: TOTAL PROTEIN 5.9 g/dL (6.2-8.1)
[2024-03-02 06:31] LABS: TOTAL BILIRUBIN 0.5 mg/dL (0.2-1.2)
--- NOTE | 2024-03-02 06:48 | NUR ---
REPORT GIVEN TO LE TURNER
[2024-03-02 09:23] VITALS: BP 137/76
--- NOTE | 2024-03-02 10:22 | NUR ---
AM REPORT RECEIVED FROM YUE LONGO. PATIENT CAN ANSWER ALL ORIENTATION QUESTIONS APPROPRIATELY, BUT CAN BE CONFUSED. STILL HAVING SOME SHORTNESS OF BREATH ON EXERTION. IV SITE INFILTRATED BEFORE ADMINISTRATION OF ANTIBIOTIC SO NEW SITE STARTED.
[2024-03-02 13:55] VITALS: BP 153/75
[2024-03-02 17:29] VITALS: BP 118/84
--- NOTE | 2024-03-02 18:41 | NUR ---
REPORT GIVEN TO ANNA CHÁVEZ
--- NOTE | 2024-03-02 19:33 | NUR ---
Report received from Keyonna TURNER. Patient sitting up in recliner. A/O x4 but does have some intermittent confusion noted at night. Oxygen in place at 1L/NC. SOA with any exertion and use of I.S. and flutter valve. Pulls 500 ML x10 on I.S. Able to pull 1500 on admission. Lungs diminished all unger, has cough, productive at times with yellow tinged sputum. HRR, tachy in low 100's. TELE in place. INT in place and patent to [facility], remains on IV ABT. No pedal edema noted. Denies pain or needs. Carpio ensure provided. Chair alarm on. Call light in reach.
--- NOTE | 2024-03-02 20:15 | NUR ---
Dr. Bingham in to round on patient.
[2024-03-02 22:03] VITALS: BP 131/76
[2024-03-03] VITALS (7 sets, daily range): BP systolic 139–182; BP diastolic 72–94
--- NOTE | 2024-03-03 01:46 | NUR ---
Sets off bed alarm. Up to BR with SBA to void. Assisted back to bed. Very SOA and coughing frequently with exertion to and from the BR. SAO2 93% on 1L. RR 28. Oxygen increased to 2L and PRN nebulizer tx given. HOB elevated. Bed alarm on. Call light in reach. Instructed by [employer] carbon furnace operator light use.
--- NOTE | 2024-03-03 06:45 | NUR ---
Report to Keyonna TURNER.
[2024-03-03] MEDS ORDERED: LORazepam 0.5 MG TABLET PO ONE (09:45)
--- NOTE | 2024-03-03 11:37 | NUR ---
PT HAS BEEN ALERT AND ORIENTED THIS AM. PT CONTINUES TO GET VERY SHORT OF BREATH WITH EXERTION AND TACHYPNEIC AFTER EXERTION. OXYGEN SATURATIONS HAVE STAYED STABLE ON 1L O2. PENNY SMITH NOTIFIED OF INCREASED WORK OF BREATHING. MUCINEX STARTED AND ONE TIME DOSE OF 0.25MG ATIVAN GIVEN. PT STILL HAS PRN ALBUTEROL AVAILABLE WHEN NEEDED. PT STATES SHORTNESS OF BREATH IS NOT MUCH DIFFERENT THAN WHAT SHE TYPICALLY EXPERIENCES AT HOME.
[2024-03-03 11:41] LABS: ALBUMIN 3.1 g/dL (3.4-4.8)
[2024-03-03 11:42] LABS: BASO # 0.04 K/mm3 (0.02-0.10); EOS # 0.36 K/mm3 (0.04-0.40); EOS % 3.3 % (1.0-5.0); HEMOGLOBIN 11.7 g/dL (12.5-16.0); MEAN CELL VOLUME 89 fl (78-100); MEAN CORPUSCULAR HEMOGLOBIN 29 pg (27-31); MEAN CORPUSCULAR HGB CONC 33 g/dL (33-37); MEAN PLATELET VOLUME 9.3 fl (7.4-10.4); MONO # 0.77 K/mm3 (0.20-0.80); NEU # 9.13 K/mm3 (1.40-6.50); PLATELET COUNT 330 K/mm3 (130-400); RED BLOOD COUNT 4.07 M/mm3 (4.10-5.30); RED CELL DISTRIBUTION WIDTH 13.8 % (11.5-14.5); WHITE BLOOD COUNT 10.8 K/mm3 (4.8-10.8)
[2024-03-03 11:43] LABS: CALCIUM 9.1 mg/dL (8.3-10.5)
[2024-03-03 11:44] LABS: TOTAL PROTEIN 6.1 g/dL (6.2-8.1)
[2024-03-03 11:46] LABS: TOTAL BILIRUBIN 0.6 mg/dL (0.2-1.2)
--- NOTE | 2024-03-03 18:14 | NUR ---
PT STILL HAVING EPISODES OF SHORTNESS OF BREATH AND TACHYPNEA, MOSTLY WITH EXERTION. PT TAKES A WHILE TO RECOVER FROM EXERTION. OXYGEN SATURATIONS REMAIN STABLE ON 1L. ALBUTEROL OFFERED THIS EVENING BUT PATIENT REFUSED STATING HER BREATHING FEELS A LOT BETTER. DAUGHTERS AT BEDSIDE MOST OF AFTERNOON AND PLAN OF CARE DISCUSSED WITH THEM AND PATIENT.
--- NOTE | 2024-03-03 18:41 | NUR ---
REPORT GIVEN TO ANNA CHÁVEZ.
--- NOTE | 2024-03-03 19:35 | NUR ---
Report recevied from Keyonna TURNER. Patient sitting in recliner with oxygen in place per N/C at 2L. A/O x4. Denies pain. States had some loose BM's today. Lungs very diminished. Tachypneic and labored increased with exertion. I.S. pulls 250-500 ML x10. TELE in place HR tachy 111. regular rhythm. No pedal edema. Vanilla ensure provided. Chair alarm on. Call light in reach.
[2024-03-04 02:21] VITALS: BP 137/82
--- NOTE | 2024-03-04 04:47 | NUR ---
Area to R lower buttocks and uppper leg more reddened. Large circular red areas. Patient denies itch or pain to area. Encouraged to lay on L side vs right and will report to provider in AM.
[2024-03-04 05:28] VITALS: BP 132/74; BP_SYST 94
--- NOTE | 2024-03-04 06:56 | NUR ---
Report to Summer TURNER.
[2024-03-04] MEDS ORDERED: Doxycycline Monohydrate 100 MG CAP PO SCH (08:30)
--- NOTE | 2024-03-04 09:00 | NUR ---
Pt is alert and oriented times 4. She is here for sob and pneumonia along with hypoxia. Per Her daughter she reports pt did have study with esthetician and it did show she does need 02 at hs per daughter. Her lungs are diminished. She does have red area on rt thigh region and I did have Dr. Delgado look at the region and reported it to Angelina that does wound care. Pt denies pain.
[2024-03-04 09:58] LABS: BASO # 0.06 K/mm3 (0.02-0.10); EOS # 0.32 K/mm3 (0.04-0.40); HEMATOCRIT 35.4 % (37.0-47.0); HEMOGLOBIN 11.4 g/dL (12.5-16.0); LYMPH# 0.68 K/mm3 (1.50-4.00); MEAN CELL VOLUME 87 fl (78-100); MEAN CORPUSCULAR HEMOGLOBIN 28 pg (27-31); MEAN CORPUSCULAR HGB CONC 32 g/dL (33-37); MEAN PLATELET VOLUME 9.1 fl (7.4-10.4); MONO # 0.91 K/mm3 (0.20-0.80); NEU # 8.59 K/mm3 (1.40-6.50); PLATELET COUNT 347 K/mm3 (130-400); RED BLOOD COUNT 4.05 M/mm3 (4.10-5.30); RED CELL DISTRIBUTION WIDTH 13.6 % (11.5-14.5); WHITE BLOOD COUNT 10.6 K/mm3 (4.8-10.8)
[2024-03-04 10:00] VITALS: BP 117/64
[2024-03-04 10:04] LABS: CALCIUM 9.2 mg/dL (8.3-10.5)
[2024-03-04 14:03] VITALS: BP 120/67
== END 2024-03-04 12:00 | disposition swing bed (61) | DRG 194 ==
LOC: MED/SURG 17:45
PROVIDERS: Family Medicine; ADMIT Nurse Practitioner
DX: J18.9 Pneumonia, unspecified organism (principal); E87.1 Hypo-osmolality and hyponatremia; E78.5 Hyperlipidemia, unspecified; R41.3 Other amnesia; G47.00 Insomnia, unspecified
CPT/HCPCS: J0692; J1650

== ENCOUNTER 2024-03-04 11:33 | Inpatient (IN) | payer MEDICARE, BC ==
[~2024-03-04] VITALS: Ht 5.1 cm; Wt 46.8 kg
[2024-03-04] MEDS ORDERED: Ibuprofen 200 MG TAB PO PRN (12:00)
[2024-03-04] MEDS ORDERED: Acetaminophen 325 MG TAB PO PRN (12:00)
[2024-03-04] MEDS ORDERED: Polyethylene Glycol 3350 Powder 17 GM PACKET PO PRN (12:00)
[2024-03-04] MEDS ORDERED: Zolpidem 5 MG TAB PO PRN (12:00)
[2024-03-04] MEDS ORDERED: Albuterol 0.083% Nebule (2.5 MG/3 ML) IH PRN (12:00)
[2024-03-04 14:00] VITALS: BP 120/67
[2024-03-04] MEDS ORDERED: diphenhydrAMINE 25 MG CAP PO ONE (14:00)
[2024-03-04] MEDS ORDERED: diphenhydrAMINE 25 MG CAP PO PRN (14:15)
[2024-03-04] MEDS ORDERED: Famotidine 20 MG TAB PO ONE (14:15)
--- NOTE | 2024-03-04 15:05 | NUR ---
Visited with Kareen and Bibiana. They are willing to have swing bed services. When in the room Pat's chest was red. She said she felt hot. Temp obtained and it was oral 98.0. Rechecked in 15 min and temp remained 98.0. Placed a fan facing toward but air flow not directly on patient. Opened the door to the room. Pat said she felt better. This CM left the room.
--- NOTE | 2024-03-04 15:56 | NUR ---
1200 PT CHANGED TO SWING BED. SHE HAS RASH ON RT BUTTOCKS WHICH IS RAISED AND RED. NON BLANCHABLE. PT LUNGS ARE DIMINISHED. NO NOTED EDEMA. SHE IS HERE DUE TO PNEUMONIA, SPUTUM CULTURE PSEUDOMONAS AERGINOSA AND STAPHYLOCOCCUS AUREUS- METHICILLIN RESISITANCE. AND STREPTOCOCCUS PNEUMONIAE- MODERATE AMOUNT. PT CONTIUES TO HAVE COUGH. SHE DOES HAVE RED RAISED RASH ON RT HIP, BUTTOCKS AND LEG. SHE DENIES ITCHING OR PAIN.
[2024-03-04] MEDS ORDERED: Triamcinolone 0.1% Cream 15 GM TUBE TP SCH (17:17)
--- NOTE | 2024-03-04 17:18 | NUR ---
PT RASH SEEMS TO BE INCREASING AND IS BLOTCHY. SHE DENIES ITCHING OR PAIN BUT THEN STANDING OUTSIDE OF ROOM SHE TELLS FAMILY THATIT DOES ITCH. SHE REMAINS ON 2 LITERS OF 02 AND DENIES INCREASED SOB.
[2024-03-04 18:00] VITALS: BP 129/73
[2024-03-04] MEDS ORDERED: Cefepime 1 G in Water For Injection,Sterile 10 ML IV SCH (18:00)
--- NOTE | 2024-03-04 18:28 | NUR ---
PT. rash is red and patchy on buttocks, leg on rt side. She also has fine rash on back and around left side. She did states when asked " The rash on buttocks is itching." Pt was given benadryl. Buttocks appearss redn or purple spots on skin that does not fade when pressed on.
[2024-03-04] MEDS ORDERED: Doxycycline Monohydrate 100 MG CAP PO SCH (19:00)
[2024-03-04 19:16] LABS: BASO # 0.07 K/mm3 (0.02-0.10); EOS # 0.51 K/mm3 (0.04-0.40); EOS % 5.3 % (1.0-5.0); HEMATOCRIT 36.2 % (37.0-47.0); HEMOGLOBIN 11.5 g/dL (12.5-16.0); LYMPH# 0.94 K/mm3 (1.50-4.00); MEAN CELL VOLUME 89 fl (78-100); MEAN CORPUSCULAR HEMOGLOBIN 28 pg (27-31); MEAN CORPUSCULAR HGB CONC 32 g/dL (33-37); MEAN PLATELET VOLUME 9.2 fl (7.4-10.4); MONO # 0.96 K/mm3 (0.20-0.80); NEU # 7.09 K/mm3 (1.40-6.50); PLATELET COUNT 344 K/mm3 (130-400); RED BLOOD COUNT 4.06 M/mm3 (4.10-5.30); RED CELL DISTRIBUTION WIDTH 13.7 % (11.5-14.5); WHITE BLOOD COUNT 9.7 K/mm3 (4.8-10.8)
--- NOTE | 2024-03-04 20:00 | NUR ---
Report received from Summer TURNER. Patient sitting up in recliner with oxygen in place at 1L/NC. A/O x4 with some forgetfulness/intermittent confusion at baseline. Denies pain. Concerned about rash and to why lab was in to draw blood x2 tonight. Educated on first attempt unsuccessful and 2nd tech in to draw. Verbalizes understanding. TELE in place HR 90's SR. Contiues to have productive cough and exertional dyspnea but seems improved. Patient states she is "feeling pretty good". Assessment completed. INT patent to LAC. Continues to have fine rash to back, extending to buttocks and upper thight and deep purple/red spots, non-blanchable to R buttocks/upper thighs. Denies itch, burn or pain. Dr. salcedo. Denies further questions, wants or needs at this time. Chair alarm on. Call light in reach.
[2024-03-04 20:02] LABS: PROTHROMBIN TIME 10.4 SECONDS (9.0-12.0)
--- NOTE | 2024-03-04 20:30 | NUR ---
HS medications taken. Assisted to BR with 1:1 assist and gaitbelt. Voids. No loose BM's noted. Cream applied to rash area. Did own oral cares and assisted to bed for neb tx. Less BREWSTER noted. HOB elevated. SCD's in place. Bed alarm on. Call light in reach. Remains on isolation precautions.
[2024-03-04] MEDS ORDERED: Famotidine 20 MG TAB PO PRN (21:00)
[2024-03-04] MEDS ORDERED: Formoterol 20 MCG,Budesonide 0.5 MG IH SCH (21:00)
[2024-03-04] MEDS ORDERED: Pravastatin 20 MG TAB PO SCH (21:00)
[2024-03-05 00:03] VITALS: BP 120/74
[2024-03-05 05:38] LABS: BASO # 0.07 K/mm3 (0.02-0.10); EOS # 0.56 K/mm3 (0.04-0.40); EOS % 7.4 % (1.0-5.0); HEMATOCRIT 33.6 % (37.0-47.0); HEMOGLOBIN 10.9 g/dL (12.5-16.0); LYMPH# 0.86 K/mm3 (1.50-4.00); MEAN CELL VOLUME 87 fl (78-100); MEAN CORPUSCULAR HEMOGLOBIN 28 pg (27-31); MEAN CORPUSCULAR HGB CONC 32 g/dL (33-37); MEAN PLATELET VOLUME 9.2 fl (7.4-10.4); MONO # 0.69 K/mm3 (0.20-0.80); NEU # 5.31 K/mm3 (1.40-6.50); PLATELET COUNT 321 K/mm3 (130-400); RED BLOOD COUNT 3.86 M/mm3 (4.10-5.30); RED CELL DISTRIBUTION WIDTH 13.6 % (11.5-14.5); WHITE BLOOD COUNT 7.6 K/mm3 (4.8-10.8)
--- NOTE | 2024-03-05 05:45 | NUR ---
Rested well through the night. Up to BR PRN with 1:1 assist. Fine rash remains to back, trunk and thighs. Dk purple areas remain to R lower buttock/thigh area. No complaints of itching this shift.
[2024-03-05 05:46] LABS: ALBUMIN 2.9 g/dL (3.4-4.8)
[2024-03-05 05:49] LABS: TOTAL PROTEIN 5.8 g/dL (6.2-8.1)
[2024-03-05 05:51] LABS: TOTAL BILIRUBIN 0.4 mg/dL (0.2-1.2)
[2024-03-05 05:58] VITALS: BP 121/77
--- NOTE | 2024-03-05 07:09 | NUR ---
Report to Peg TURNER.
[2024-03-05] MEDS ORDERED: Fluticasone Nasal 50 MCG/Spray 16 GM BOTTLE NS SCH (09:00)
[2024-03-05] MEDS ORDERED: Potassium Bicarbonate/Citrate 20 MEQ Effervescent TAB PO SCH (09:00)
[2024-03-05] MEDS ORDERED: Cetirizine 10 MG TAB PO SCH (09:00)
[2024-03-05] MEDS ORDERED: Donepezil 5 MG TAB PO SCH (09:00)
[2024-03-05 12:20] VITALS: BP 140/82
--- NOTE | 2024-03-05 15:00 | NUR ---
PT ALERT. SKIN WARM AND DRY. RASH CONTINUES WITHOUT WORSENING. OVERALL PATIENT REPORTS THAT SHE IS FEELING BETTER. PT ABLE TO WALK TO BR WITH MINIMAL INCREASED WORK OF BREATHING. PT IS ALSO REPORTING IMPROVEMENT IN COUGH. DAUGHTER FROM [place] HERE OFF AND ON.
[2024-03-05 17:22] VITALS: BP 152/82
[2024-03-06 00:05] VITALS: BP 135/74
[2024-03-06 06:06] VITALS: BP 162/80
[2024-03-06 07:23] LABS: BASO # 0.09 K/mm3 (0.02-0.10); EOS # 0.53 K/mm3 (0.04-0.40); EOS % 7.7 % (1.0-5.0); HEMATOCRIT 34.9 % (37.0-47.0); HEMOGLOBIN 11.2 g/dL (12.5-16.0); LYMPH# 0.92 K/mm3 (1.50-4.00); MEAN CELL VOLUME 88 fl (78-100); MEAN CORPUSCULAR HEMOGLOBIN 28 pg (27-31); MEAN CORPUSCULAR HGB CONC 32 g/dL (33-37); MEAN PLATELET VOLUME 8.7 fl (7.4-10.4); MONO # 0.54 K/mm3 (0.20-0.80); NEU # 4.69 K/mm3 (1.40-6.50); PLATELET COUNT 394 K/mm3 (130-400); RED BLOOD COUNT 3.96 M/mm3 (4.10-5.30); RED CELL DISTRIBUTION WIDTH 13.5 % (11.5-14.5); WHITE BLOOD COUNT 6.9 K/mm3 (4.8-10.8)
[2024-03-06 07:32] LABS: ALBUMIN 3.1 g/dL (3.4-4.8)
[2024-03-06 07:34] LABS: CALCIUM 9.6 mg/dL (8.3-10.5)
[2024-03-06 07:35] LABS: TOTAL PROTEIN 6.2 g/dL (6.2-8.1)
[2024-03-06 07:37] LABS: TOTAL BILIRUBIN 0.3 mg/dL (0.2-1.2)
--- NOTE | 2024-03-06 08:30 | NUR ---
PT RESTING IN CHAIR EATING BREAKFAST. STATED THAT SHE WAS FEELING ALOT BETTER TODAY THAN SHE HAS BEEN. NO ACUTE CONCERNS OR WANTS. O2 @ 2L VIA NC. ASSESMENT COMPLETE. MEDICATION TAKEN PO. BREATHING TREATMENT DONE. O2 BACK TO 1L VIA NC. NO PAIN. CALL LIGHT WITHIN REACH, CHAIR ALARM ON.
[2024-03-06 12:50] VITALS: BP 135/68
[2024-03-06 17:02] VITALS: BP 123/65
--- NOTE | 2024-03-06 17:29 | NUR ---
Plan is to discharge on Monday after last dose of antibiotics. Bibiana and Daughter Shea have signed the [facility] Choice list and has chosen [facility] in [place]. They would like a nation wide supplier for oxygen services so that they have more accessability. [facility] has been called spoke to Gennaro explained that discharge was Monday afternoon. Oxygen set up and portable concentrator will be needed and home set up will also be needed. Clinicals and order to be faxed to [facility]. Bibiana has chosen [facility] and signed the choice List. She has had previous home health with this company and would like to continue services with this Pact.
--- NOTE | 2024-03-06 17:35 | NUR ---
Last dose of antibiotics is 10 am.
[2024-03-06] MEDS ORDERED: diphenhydrAMINE 25 MG CAP PO SCH (18:00)
[2024-03-06] MEDS ORDERED: diphenhydrAMINE 12.5 MG/5 ML Oral Soln PO SCH (18:00)
--- NOTE | 2024-03-06 19:00 | NUR ---
Report from YUE Romeo.
--- NOTE | 2024-03-06 20:00 | NUR ---
Patient resting in chair. Oriented x4 with some trouble finding words at times. 1 L NC. Denies pain. HS meds given. Chair alarm on, call light within reach. Patient denies other needs at this time.
--- NOTE | 2024-03-06 21:30 | NUR ---
Patient assisted to bathroom w/ SBA. Tolerated fairly well. SP02 checked upon return to bed, showing 75%. Rapidly improved to 85%. O2 increased to 2 L at this time.
--- NOTE | 2024-03-06 21:52 | NUR ---
SP02 spot checked at this time, showed 92% on 2 L.
[2024-03-06 23:38] VITALS: BP 157/95
[2024-03-06 23:54] VITALS: BP 152/80
[2024-03-07] MEDS ORDERED: diphenhydrAMINE 25 MG CAP PO SCH (02:00)
--- NOTE | 2024-03-07 02:15 | NUR ---
Scheduled abx given together with benadryl. SP02 checked at this time, 97% on 2 L. O2 decreased to 1 L.
[2024-03-07 05:53] VITALS: BP 153/81
--- NOTE | 2024-03-07 08:30 | NUR ---
AM REPORT RECEIVED FROM YUE JOHN. PT ALERT AND ORIENTED TO QUESTIONS BUT CAN BE CONFUSED AND FORGETFUL. PT HAS RASH TO BOTH BUTTOCKS, UNDER RIGHT BUTTOCK AND RIGHT LOWER BACK. PER DR. MONTIEL THIS RASH LOOKS BETTER THAN PREVIOUS. REPORTS SHORTNESS OF BREATH WITH EXERTION, BUT NOT AT REST.
[2024-03-07 12:33] VITALS: BP 135/70
--- NOTE | 2024-03-07 12:46 | NUR ---
OXYGEN TURNED OFF AT 1235 TO PERFORM A HOME OXYGEN STUDY. BY 1240, OXYGEN SATURATIONS ON ROOM AIR WAS 85%. 1L PLACED BACK ON PATIENT AND SATURATIONS BACK UP TO 93%.
[2024-03-07 17:08] VITALS: BP 146/75
--- NOTE | 2024-03-07 18:47 | NUR ---
REPORT GIVEN TO ANNA CHÁVEZ
--- NOTE | 2024-03-07 20:30 | NUR ---
Report received from Keyonna TURNER. Patient in room with STRUCTURES MECHANIC getting ready for bed. A/O x4. Forgetful at times and has intermittent confusion per baseline. Oxygen in place at 1L/NC. Cough decreased as well as exertional dyspnea. Denies pain. Assessment completed. Using I.S. Q 1 hour W/A and flutter valve Q2 hours W/A. Pulls 500-750 ML on I.S. Able to do today without coughing. INT patent to LAC. Remains on droplet isolation. Has 2 more doses of IV ABT left for course. PO HS medications taken whole without difficulty.
--- NOTE | 2024-03-07 22:15 | NUR ---
Calls and requests to have SCD's removed. Removed at this time.
--- NOTE | 2024-03-08 02:16 | NUR ---
IV antibiotic and PO benadryl given. Up to BR to void and back to bed. Denies pain. Has some itching. INT patent and flushed well with 10 ML of NS before and after antibiotic. Bed alarm on. Call light in reach. Refused SCD's.
[2024-03-08 05:48] VITALS: BP 137/74
--- NOTE | 2024-03-08 06:53 | NUR ---
Report to Ousmane TURNER.
[2024-03-08 07:45] LABS: EOS # 0.41 K/mm3 (0.04-0.40); HEMATOCRIT 36.3 % (37.0-47.0); HEMOGLOBIN 11.5 g/dL (12.5-16.0); LYMPH# 1.38 K/mm3 (1.50-4.00); MEAN CELL VOLUME 88 fl (78-100); MEAN CORPUSCULAR HEMOGLOBIN 28 pg (27-31); MEAN CORPUSCULAR HGB CONC 32 g/dL (33-37); MEAN PLATELET VOLUME 8.7 fl (7.4-10.4); MONO # 0.51 K/mm3 (0.20-0.80); NEU # 4.35 K/mm3 (1.40-6.50); PLATELET COUNT 435 K/mm3 (130-400); RED BLOOD COUNT 4.12 M/mm3 (4.10-5.30); RED CELL DISTRIBUTION WIDTH 13.4 % (11.5-14.5); WHITE BLOOD COUNT 6.8 K/mm3 (4.8-10.8)
[2024-03-08 07:52] LABS: ALBUMIN 3.3 g/dL (3.4-4.8)
[2024-03-08 07:53] LABS: CALCIUM 9.6 mg/dL (8.3-10.5)
[2024-03-08 07:55] LABS: TOTAL PROTEIN 6.4 g/dL (6.2-8.1)
[2024-03-08 07:56] LABS: TOTAL BILIRUBIN 0.3 mg/dL (0.2-1.2)
--- NOTE | 2024-03-08 08:00 | NUR ---
PT UP IN CHAIR FOR BREAKFAST. PT STATED THAT SHE WAS BOTH EXCITED AND NERVOUS TO GO HOME TODAY. NO PAIN. O2 1L VIA NC. ASSESMENT COMPLETE. MEDICATION TAKEN PO. IV LAC. NO OTHER WANTS OR NEEDS AT THIS TIME. CALL LIGHT WITHIN REACH, CHAIR ALARM ON.
[2024-03-08] MEDS ORDERED: DOXYCYCLINE MO100 M3 PO (09:03)
[2024-03-08] MEDS ORDERED: ALLER-FLO15.8 ML NS (09:04)
[2024-03-08] MEDS ORDERED: ACIDOPHILUS PR0.5 MG PO (09:05)
--- NOTE | 2024-03-08 11:00 | NUR ---
PT IN WHEELCHAIR TO DISCHARGE HOME WITH DAUGHTER ACCOMPANING. HOME OXYGEN REP HERE AND WENT OVER INSTRUCTIONS FOR PORTABLE OXYGEN USE AT HOME. DISCHARGE INSTRUCTIONS GONE OVER INLCUDING NEXT APPOINTMENTS AND MEDICATION SCRIPTS. PT ALERT AND ORIENTED. NO PAIN. PT LEFT ON 1L 02 VIA NC. NO OTHER QUESTIONS OR CONCERNS AT THIS TIME.
== END 2024-03-08 11:00 | disposition home or self-care (01) | DRG 194 ==
LOC: MED/SURG 11:33
PROVIDERS: ADMIT Family Medicine
DX: J18.9 Pneumonia, unspecified organism (principal); E44.0 Moderate protein-calorie malnutrition; E87.1 Hypo-osmolality and hyponatremia
CPT/HCPCS: J0692; J1650

== ENCOUNTER → 2024-04-19 | Outpatient (CLI) | payer MEDICARE, BC ==
[~2024-04-19] MED LIST changes: +ACIDOPHILUS PR0.5 MG PO; +ALLER-FLO15.8 ML NS
== END ==
LOC: LAB 14:58
DX: J47.9 Bronchiectasis, uncomplicated (principal)

== ENCOUNTER → 2024-04-20 | Outpatient (CLI) | payer MEDICARE, BC | LOC: LAB 12:25 | DX: J47.9 Bronchiectasis, uncomplicated (principal) ==

== ENCOUNTER → 2024-08-02 | Outpatient (CLI) | payer MEDICARE, BC | LOC: LAB 11:36 | DX: J47.1 Bronchiectasis with (acute) exacerbation (principal) ==

== ENCOUNTER → 2024-08-08 | Outpatient (REF) | payer MEDICARE, BC | LOC: LAB 16:40 | DX: J47.1 Bronchiectasis with (acute) exacerbation (principal) ==

== ENCOUNTER 2024-09-07 15:37 | Emergency (ER) | payer MEDICARE, BC ==
[~2024-09-07] VITALS: Ht 157.5 cm; Wt 45.9 kg
[2024-09-07 15:52] VITALS: BP 178/91
[2024-09-07 15:59] LABS: BASO # 0.05 K/mm3 (0.02-0.10); EOS # 0.18 K/mm3 (0.04-0.40); EOS % 1.5 % (1.0-5.0); HEMATOCRIT 37.1 % (37.0-47.0); HEMOGLOBIN 11.8 g/dL (12.5-16.0); LYMPH# 1.31 K/mm3 (1.50-4.00); MEAN CELL VOLUME 90 fl (78-100); MEAN CORPUSCULAR HEMOGLOBIN 29 pg (27-31); MEAN CORPUSCULAR HGB CONC 32 g/dL (33-37); MEAN PLATELET VOLUME 9.8 fl (7.4-10.4); NEU # 8.97 K/mm3 (1.40-6.50); PLATELET COUNT 245 K/mm3 (130-400); RED BLOOD COUNT 4.13 M/mm3 (4.10-5.30); RED CELL DISTRIBUTION WIDTH 14.2 % (11.5-14.5); WHITE BLOOD COUNT 11.6 K/mm3 (4.8-10.8)
[2024-09-07 16:08] LABS: CALCIUM 9.7 mg/dL (8.3-10.5)
[2024-09-07] MEDS ORDERED: levoFLOXacin 250 MG TABLET PO ONE (17:15)
[2024-09-07] MEDS ORDERED: LEVOFLOXACIN750 MG PO (17:20)
== END 2024-09-07 17:37 | disposition home or self-care (01) ==
LOC: ED 15:37
PROVIDERS: Family Medicine
DX: J47.1 Bronchiectasis with (acute) exacerbation (principal); Z88.0 Allergy status to penicillin; Z88.1 Allergy status to other antibiotic agents